=== PATIENT | male | born 2000 | race Caucasian/White ===

== ENCOUNTER 2019-11-28 01:42 | Emergency (ER) | payer BC, SELFPAY ==
[~2019-11-28] VITALS: Ht 172.7 cm; Wt 56.8 kg
[2019-11-28 03:09] VITALS: BP 114/72
== END 2019-11-28 03:10 | disposition home or self-care (01) ==
LOC: M ED 01:42
DX: F43.20 Adjustment disorder, unspecified (principal); Z88.7 Allergy status to serum and vaccine